=== PATIENT | female | born 1940 | race Caucasian/White ===

== ENCOUNTER 2016-04-06 07:29 | Day surgery (SDC) | payer MEDICARE, OTHER ==
[~2016-04-06 07:29] MED LIST: LACTATED RINGERS 1,000 ML IV SCH
[2016-04-06] MEDS ORDERED: LACTATED RINGERS 1,000 ML ONE (08:03)
[2016-04-06] MEDS ORDERED: PROPOFOL 20 ML IV ONE ×2 (08:03→09:06)
[2016-04-06] MEDS ORDERED: IV START KIT ONE (08:03)
== END 2016-04-06 09:48 | disposition home or self-care (01) ==
LOC: SDC 07:29
PROVIDERS: ATTEND Internal Medicine Gastroenterology
PROC: 0DJD8ZZ Inspection of Lower Intestinal Tract, Via Natural or Artificial Opening Endoscopic (ICD-10-PCS; principal; 2016-04-06)
DX: Z12.11 Encounter for screening for malignant neoplasm of colon (principal); K64.8 Other hemorrhoids; K59.8 Other specified functional intestinal disorders; Z86.010 Personal history of colon polyps; Z87.891 Personal history of nicotine dependence; Z85.118 Personal history of other malignant neoplasm of bronchus and lung; E11.9 Type 2 diabetes mellitus without complications; Z79.4 Long term (current) use of insulin; I10 Essential (primary) hypertension; I25.10 Atherosclerotic heart disease of native coronary artery without angina pectoris; J44.9 Chronic obstructive pulmonary disease, unspecified; Z88.2 Allergy status to sulfonamides; Z88.0 Allergy status to penicillin; Z79.82 Long term (current) use of aspirin
CPT/HCPCS: 45378; J7120